=== PATIENT | male | born 1980 | race Caucasian/White ===

== ENCOUNTER 2018-07-16 10:17 | Inpatient (IN) ==
--- NOTE | 2018-07-16 10:39 | ED ---
HPI General Chief complaint: Psychiatric Symptoms Stated complaint: Psych Eval/VCSO Time Seen by Provider: 07/16/18 10:35 History of Present Illness HPI narrative: 37-year-old male presents under a [place] act initiated by the [employer]. The patient reports that he lost his job 2 months ago. He has been feeling depressed and suicidal for the past month. Today he called EMS and was transported here. He reports that he has had vague thoughts of cutting himself or jumping in front of a moving vehicle. Symptoms are moderate , aggravated by unemployment. Denies any homicidal ideation, auditory or visual hallucinations, drug or alcohol use. He does endorse a history of asthma and he has been having a cough and wheezing for the past week. He has been using his albuterol inhaler/nebulizer 3-4 times a day. No fevers or chills. Cough is dry. No other complaints. Related Data Home Medications Medication Instructions Recorded Confirmed albuterol sulfate 07/16/18 Previous Rx's Medication Instructions Recorded prednisone 20 mg PO BID 5 Days #10 tab 07/16/18 Allergies Allergy/AdvReac Type Severity Reaction Status Date / Time No Known Allergies Allergy Verified 07/16/18 10:24 Review of Systems ROS: all other systems reviewed are negative [facility] Medical History Medical History Asthma (Acute) Surgical History Surgical History No history of previous surgery (Acute) Social History Social History Substance History: No History of Abuse Second Hand Smoke Exposure: No Smoking Status: Never smoker How Often Do You Have a Drink Containing Alcohol: Never Recent Travel in [facility] within the Last 8 Weeks: No Recent Out of Country Travel within the Last 8 Weeks: No Immunization History Tetanus Immunization: Unsure Exam Narrative Exam Narrative: GENERAL: Well-developed well-nourished male no acute distress SKIN: Warm and dry. HEAD: Atraumatic. Normocephalic. EYES: Pupils equal and round. No scleral icterus. No injection or drainage. ENT: No nasal bleeding or discharge. Mucous membranes pink and moist. NECK: Trachea midline. No JVD. CARDIOVASCULAR: Regular rate and rhythm. No murmur appreciated. RESPIRATORY: No accessory muscle use. Inspiratory wheezing bilaterally. No crackles GASTROINTESTINAL: Abdomen soft, non-tender, nondistended. Hepatic and splenic margins not palpable. MUSCULOSKELETAL: No obvious deformities. No clubbing. No cyanosis. No edema. NEUROLOGICAL: Awake and alert. No obvious cranial nerve deficits. Motor grossly within normal limits. Normal speech. PSYCHIATRIC: Depressed mood; insight and judgment normal. Course Initial Documented Vital Signs Temperature 99 F 07/16/18 10:25 Pulse Rate 93 H 07/16/18 10:25 Respiratory Rate 16 07/16/18 10:25 Blood Pressure 187/113 H 07/16/18 10:25 Pulse Oximetry 97 07/16/18 10:25 Last Documented Vital Signs Temperature 99 F 07/16/18 10:25 Pulse Rate 93 H 07/16/18 10:25 Respiratory Rate 16 07/16/18 10:25 Blood Pressure 187/113 H 07/16/18 10:25 Pulse Oximetry 97 07/16/18 10:25 Medical Decision Making MDM Narrative Medical decision making narrative: Mental health screening discussed with the patient. Psychiatric screen ordered. DuoNeb administration has been ordered. Prednisone 20 mg every 12 hours has been ordered for his asthma exacerbation. A prescription for prednisone will also be placed into his paperwork for use upon discharge. Lab work has been reviewed. The patient is medically cleared for psychiatric disposition. Medical Screen Exam Complete: Yes Emergency Medical Condition: Yes Differential Diagnosis Differential Diagnosis: Major depressive disorder, depressive disorder not otherwise specified, adjustment reaction, acute psychosis Lab Data Result diagrams: 07/16/18 10:30 07/16/18 10:30 Lab Results 07/16/18 07/16/18 Range/Units 10:30 10:30 WBC 7.6 (4.0-11.0) th/mm3 RBC 4.72 (4.50-5.90) mil/mm3 Hgb 14.6 (13.0-17.0) gm/dL Hct 41.0 (39.0-51.0) % MCV 86.9 (80.0-100.0) fL MCH 31.0 (27.0-34.0) pg MCHC 35.7 (32.0-36.0) % RDW 13.4 (11.6-17.2) % Plt Count 214 (150-450) th/mm3 MPV 7.4 (7.0-11.0) fL Neut % (Auto) 71.3 H (16.0-70.0) % Lymph % (Auto) 12.4 (9.0-44.0) % [place] % (Auto) 8.6 H (0.0-8.0) % Eos % (Auto) 6.9 H (0.0-4.0) % Baso % (Auto) 0.8 (0.0-2.0) % Neut # (Auto) 5.4 (1.8-7.7) th/mm3 Lymph # (Auto) 0.9 L (1.0-4.8) th/mm3 [place] # (Auto) 0.7 (0.0-0.9) th/mm3 Eos # (Auto) 0.5 H (0.0-0.4) th/mm3 Baso # (Auto) 0.1 (0.0-0.2) th/mm3 WBC Differential . Differential Comment Auto diff final Sodium 140 (136-145) meq/L Potassium 3.7 (3.5-5.1) meq/L Chloride 106 (98-107) meq/L Carbon Dioxide 26.7 (21.0-32.0) meq/L Anion Gap 7 (5-15) meq/L BUN 9 (7-18) mg/dL Creatinine 0.92 (0.60-1.30) mg/dL Estimated GFR Greater than 89 (>89) mL/min Random Glucose 101 (74-106) mg/dL Calcium 8.3 L (8.5-10.1) mg/dL Magnesium 1.9 (1.5-2.5) mg/dL Total Bilirubin 1.0 (0.2-1.0) mg/dL AST 34 (15-37) U/L ALT 46 (12-78) U/L Alkaline Phosphatase 102 (45-117) U/L Total Protein 7.9 (6.4-8.2) g/dL Albumin 4.0 (3.4-5.0) g/dL TSH 1.260 (0.358-3.740) uIU/mL Serum Alcohol Less than 3 (0-5) mg/dL Discharge Plan Discharge Disposition Patient Disposition: 30 Still Patient Discharge Condition Condition: Stable Discharge Details Diagnosis: Encounter for medical clearance for patient hold, Asthma exacerbation Physicians Team ED Provider: Miguel Pelayo ED Midlevel Provider: Aditya Bower Primary Care Provider: Primary Care Jesúsi,Starla Rxs /Orders / Referrals /Forms Prescriptions: New prednisone 20 mg tablet 20 mg PO BID 5 Days Qty: 10 RF: 0 No Action albuterol sulfate 90 mcg/actuation Hfa Aerosol Inhaler RF: 0 Status ED Status: Medically Cleared
[2018-07-16 10:51] LABS: Baso # (Auto) 0.1 th/mm3 (0.0-0.2); Baso % (Auto) 0.8 % (0.0-2.0); Eos # (Auto) 0.5 th/mm3 (0.0-0.4); Eos % (Auto) 6.9 % (0.0-4.0); Hemoglobin 14.6 gm/dL (13.0-17.0); Lymph # (Auto) 0.9 th/mm3 (1.0-4.8); Lymph % (Auto) 12.4 % (9.0-44.0); Mean Corpuscular HGB Conc 35.7 % (32.0-36.0); Mean Corpuscular Volume 86.9 fL (80.0-100.0); Mean Platelet Volume 7.4 fL (7.0-11.0); Mono # (Auto) 0.7 th/mm3 (0.0-0.9); Mono % (Auto) 8.6 % (0.0-8.0); Neut # (Auto) 5.4 th/mm3 (1.8-7.7); Neut % (Auto) 71.3 % (16.0-70.0); Platelet Count 214 th/mm3 (150-450); Red Blood Count 4.72 mil/mm3 (4.50-5.90); Red Cell Distribution Width 13.4 % (11.6-17.2); White Blood Count 7.6 th/mm3 (4.0-11.0)
[2018-07-16 11:13] LABS: Alanine Aminotransferase 46 U/L (12-78); Anion Gap 7 meq/L (5-15); Aspartate Aminotransferase 34 U/L (15-37); Blood Urea Nitrogen 9 mg/dL (7-18); Calcium 8.3 mg/dL (8.5-10.1); Carbon Dioxide 26.7 meq/L (21.0-32.0); Chloride 106 meq/L (98-107); Glomerular Filtration Rate Greater Than 89 mL/min (>89); Glucose,Random 101 mg/dL (74-106); Magnesium 1.9 mg/dL (1.5-2.5); Sodium 140 meq/L (136-145)
[2018-07-16 11:20] LABS: Alkaline Phosphatase 102 U/L (45-117); Total Protein 7.9 g/dL (6.4-8.2)
[2018-07-16 11:24] LABS: Potassium 3.7 meq/L (3.5-5.1)
[2018-07-16 11:37] LABS: Amphetamine Screen,Urine Neg (Neg); Barbiturate Screen,Urine Neg (Neg); Cannabinoid Screen,Urine Neg (Neg); Cocaine Screen,Urine Neg (Neg)
[2018-07-16 11:38] LABS: Opiate Screen,Urine Neg (Neg)
[2018-07-16] MEDS: predniSONE 20 MG Tablet PO SCH ×2 (15:27→20:38)
[2018-07-17] MEDS: predniSONE 20 MG Tablet PO SCH ×2 (09:40→21:02)
[2018-07-17] MEDS ORDERED: Aluminum/Magnesium/Simethacone Susp 30 ML UDC PO PRN (09:49)
[2018-07-17] MEDS ORDERED: Acetaminophen 325 MG Tablet PO PRN (09:49)
[2018-07-17] MEDS ORDERED: Senna/Docusate Sodium 8.6/50 MG Tablet PO PRN (09:49)
[2018-07-17] MEDS ORDERED: LORazepam 1 MG Tablet PO PRN (09:49)
[2018-07-17] MEDS ORDERED: Bisacodyl 10 MG Supp RECTAL PRN (09:49)
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
[2018-07-17] MEDS: Sertraline 50 MG Tablet PO SCH (11:30)
[2018-07-17] MEDS ORDERED: Benzonatate 100 MG Capsule PO PRN (17:53)
--- NOTE | 2018-07-17 18:12 | P.CON ---
History of Present Illness Service: [facility] Consult date: 07/17/18 Requesting Physician: Duran Hanna Reason for Consult: asthma management Primary Care Provider: No Primary Care Physician Chief Complaint: "I got sick a week ago" History of Present Illness: 37-year-old male with past medical history significant for asthma and hypertension who presented to the emergency department on 07/16 under [place] act initiated by police department. Patient had apparently lost his job 2 months ago and began having suicidal thoughts and increased depression. Patient was admitted to psychiatry department for further treatment. [facility] consulted to assist with management of asthma. Patient reports he was hospitalized many times during his childhood due to asthma exacerbations. His asthma is routinely controlled with albuterol nebulizer treatments and rescue inhaler. He denies requiring mechanical ventilation for asthma. He states that about 2 weeks ago he became sick as he was around his small children who are also sick. He feels that he partially recovered and became sick once again about a week ago. States that he is been having ongoing cough for the past week, initially cough was productive and now is dry. He reports chest discomfort with cough. He does endorse some shortness of breath especially with coughing fit. States he is unable to sleep at night as coughing is worse when he lies down. He denies any fevers, chills, nausea, vomiting or diarrhea. Patient denies any sore throat, or nasal discharge or sinus tenderness. He also reports that he was previously on antihypertensives including Norvasc and lisinopril however these caused him to develop a rash therefore discontinued these. He denies any other acute concerns at the moment. Review of Systems All other systems reviewed negative except as stated in [facility] - History History Provided By: Patient, Medical Record - Medical History Medical History: Medical History (Last Updated 07/17/18 @ 18:04 by Quita Biswas) Asthma HTN (hypertension) - Surgical History Surgical History: Surgical History (Last Reviewed 07/17/18 @ 18:05 by Quita Biswas) No history of previous surgery - Family History Family History: Family History (Last Updated 07/17/18 @ 18:05 by Quita Biswas) Mother Asthma - Social History I have reviewed the patient's Social History: Yes - Tobacco History Second Hand Smoke Exposure: No Smoking Status: Never smoker - Alcohol History How Often Do You Have a Drink Containing Alcohol: Never - Substance Use History Substance History: No History of Abuse - Travel History Recent Travel in the USA Within the Last 8 Weeks: No Recent Travel Out of the Country Within the Last 8 Weeks: No - Immunization History Tetanus Immunization: Unsure Medications and Allergies Active Medications: Active Medications Acetaminophen (Tylenol) 650 mg PO Q4H PRN PRN Reason: Pain 1-5 or Temp >101F Al Hydrox/Mg Hydrox/Simethicone (Mag-Al Plus Susp Liq) 30 ml PO Q6H PRN PRN Reason: DYSPEPSIA Al Hydroxide/Mg Hydroxide (Milk Of Magnesia Liq) 30 ml PO Q12H PRN PRN Reason: Mild Constipation Albuterol (Albuterol Neb (Prn)) 2.5 mg NEB Q2HR NEB PRN PRN Reason: SHORTNESS OF BREATH/WHEEZING Bisacodyl (Dulcolax Supp) 10 mg RECTAL DAILY PRN PRN Reason: SEVERE CONSITIPATION Diphenhydramine HCl (Benadryl) 50 mg PO HS PRN PRN Reason: INSOMNIA Lactulose (Lactulose Liq) 30 ml PO DAILY PRN PRN Reason: SEVERE CONSITIPATION Lorazepam (Ativan) 1 mg PO Q6H PRN PRN Reason: MODERATE TO SEVERE ANXIETY Prednisone (Deltasone) 20 mg PO BID [facility] Last Admin: 07/17/18 09:40 Dose: 20 mg Senna/Docusate Sodium (Hilary-Colace) 1 tab PO BID PRN PRN Reason: CONSTIPATION Sennosides (Senokot) 17.2 mg PO Q12H PRN PRN Reason: Moderate Constipation Sertraline HCl (Zoloft) 50 mg PO DAILY [facility] Last Admin: 07/17/18 11:30 Dose: 50 mg Allergies Allergy/AdvReac Type Severity Reaction Status Date / Time No Known Allergies Allergy Verified 07/16/18 10:24 Home Medications Medication Instructions Recorded Confirmed Type albuterol sulfate 2 puff INHALATION PRN PRN 07/16/18 07/16/18 History Physical Exam Vital signs: Vital Signs 07/16/18 18:11 07/16/18 18:49 07/16/18 20:36 Temperature 98.7 F Pulse Rate 97 H 112 H 104 H Respiratory Rate 20 20 20 Blood Pressure 174/101 H 180/86 H Pulse Oximetry 99 94 L 07/16/18 21:20 07/16/18 22:30 07/17/18 04:47 Temperature Pulse Rate 104 H 99 H 107 H Respiratory Rate 17 17 Blood Pressure 163/84 H 141/90 H Pulse Oximetry 93 L 95 07/17/18 12:57 Temperature 98.8 F Pulse Rate 107 H Respiratory Rate Blood Pressure 175/100 H Pulse Oximetry 93 L Intake & Output 07/16/18 07/17/18 07/17/18 18:59 06:59 18:59 Weight 113.398 kg 111 kg Other: Weight On Admission 111 kg Narrative: GENERAL: Well-developed, well-nourished male sitting up in chair in no acute distress. SKIN: Warm and dry. HEAD: Atraumatic. Normocephalic. EYES: Pupils equal and round. No scleral icterus. No injection or drainage. ENT: No nasal bleeding or discharge. Mucous membranes pink and moist. No oral pharynx erythema or exudate, no sinus tenderness. NECK: Trachea midline. No JVD. CARDIOVASCULAR: Regular rate and rhythm. RESPIRATORY: No accessory muscle use, respirations unlabored. Scattered expiratory wheezing throughout anterior and posterior lung villaseñor, no crackles or rhonchi. GASTROINTESTINAL: Abdomen soft, non-tender, nondistended. + Bowel sounds MUSCULOSKELETAL: Extremities without clubbing, cyanosis, or edema. No obvious deformities. NEUROLOGICAL: Awake, alert, oriented x3. No obvious cranial nerve deficits. Motor grossly within normal limits. Five out of 5 muscle strength in the arms and legs. Normal speech. Results - Labs CBC & Chem 7: 07/16/18 10:30 07/16/18 10:30 Assessment and Plan - Plan 37-year-old male with past medical history significant for asthma and hypertension who presented to the emergency department on 07/16 under [place] act initiated by police department. Patient had apparently lost his job 2 months ago and began having suicidal thoughts and increased depression. Patient was admitted to psychiatry department for further treatment. [facility] consulted to assist with management of asthma. Asthma, moderately controlled, mild exacerbation URI, likely viral -CBC with no leukocytosis, oxygen saturation in the mid to low 90s. -We will schedule breathing treatments every 4 hours, with as needed albuterol -Check chest x-ray -Tessalon Perles as needed for cough, start Symbicort low-dose -Continue oral prednisone, one-time dose of oral magnesium Hypertension, chronic, uncontrolled -Patient reports rash with lisinopril and Norvasc. -Start low-dose hydralazine, continue monitoring BP trend and adjust medications accordingly. DVT prophylaxisambulation Thank you Dr. Hanna for this consultation, will continue to follow along.
[2018-07-17] MEDS ORDERED: Magnesium Oxide 400 MG Tablet PO ONE (18:30)
--- NOTE | 2018-07-17 18:32 | XR ---
EXAM DATE: 07/17/2018 6:30 PM EST AGE/SEX: 37 years / Male INDICATIONS: Cough, shortness of breath, congestion. CLINICAL DATA: This is the patient's subsequent encounter. Patient reports that signs and symptoms h ave been present for 3 weeks and indicates a pain score of 3/10. MEDICAL/SURGICAL HISTORY: Asthma. None. COMPARISON: No prior exams available for comparison. FINDINGS: A single AP view of the chest demonstrates the lungs to be symmetrically aerated without evidence of mass, infiltrate or effusion. The cardiomediastinal contours are unremarkable. Osseous structures a re intact. CONCLUSION: The lungs are clear. Electronically signed by: Rene Howell MD 07/17/2018 6:31 PM EST
[2018-07-17] MEDS: hydrALAZINE 10 MG Tablet PO SCH ×2 (19:31→19:40)
[2018-07-17] MEDS: Budesonide-Formoterol 80/4.5 MCG 6.9 GM Inhaler INH SCH (22:45)
[2018-07-18] MEDS: Budesonide-Formoterol 80/4.5 MCG 6.9 GM Inhaler INH SCH ×2 (08:58→20:33)
[2018-07-18] MEDS: hydrALAZINE 10 MG Tablet PO SCH ×3 (08:59→17:57)
[2018-07-18] MEDS: predniSONE 20 MG Tablet PO SCH ×2 (08:59→20:33)
[2018-07-18] MEDS: Sertraline 50 MG Tablet PO SCH (09:00)
--- NOTE | 2018-07-18 11:04 | P.PNPSY ---
Subjective Remarks: Reviewed electronic record and discussed with nursing staff. Rounded with ROLO Nugent. Patient in common area. He is well rested and states that he feels alot better. Started on Zoloft and has no side effects from the medications. Focused on finding employment. States he was let go from "[employer]" and has been struggling to find another job. Worked for [employer] for a long time but could not keep up with the demands and the pressure of the physical work crawling though the ceiling of home. He appears remorseful regarding the [place] Act and is preoccupied with finding employment to support his family. Denies SI/HI. Review of Systems All other systems reviewed negative except as stated in HPI Mental Status Examination Appearance: Appropriate Consciousness: Alert Orientation: Person, Place, Date/Time Motor Activity: Normal gait Speech: Unremarkable Language: Adequate Fund of Knowledge: Inadequate Attention and Concentration: Adequate Memory: Unremarkable Mood: Sad Affect: Sad Thought Process & Associations: Intact, Linear Thought Content: Appropriate Hallucination Type: None Delusion Type: None Suicidal Ideation: No Suicidal Plan: No Suicidal Intention: No Homicidal Ideation: No Homicidal Plan: No Homicidal Intention: No Insight: Fair Judgment: Impulsive Assessment and Plan - Assessment (1) Major depressive disorder Code(s): F32.9 - Major depressive disorder, single episode, unspecified Status : Acute - Plan Plan: Estimated LOS: [] days Continue current treatment and plan of care. Justification for Continued Inpatient Stay: Moving patient to a less restrictive environment may result in his decompensation. (1) Major depressive disorder Qualifiers: Major depression recurrence: single episode Active/Remission status: currently active Major depression episode severity: severe Psychotic features : without psychotic features Qualified Code(s): F32.2 - Major depressive disorder, single episode, severe without psychotic features
--- NOTE | 2018-07-18 13:06 | P.PN ---
Subjective Interval history: Follow-up visit for asthma and hypertension. Spoke with nurse who reports patient has been refusing hydralazine for blood pressure management, states that he takes homeopathic medications for this. Patient seen and examined in his room, appears to be in no acute distress. He reports he slept much better overnight with less coughing, shortness of breath has also improved. He denies any fevers, chills, nausea, vomiting or diarrhea. Discussed the importance of BP control as well as long-term damage to organs associated with persistent hypertension. Patient states that he would like to try natural routes prior to trying medication. Physical Exam Vital signs: Vital Signs 07/17/18 17:00 07/17/18 21:39 07/18/18 05:25 Temperature 98 F Pulse Rate 107 H 107 H 85 Respiratory Rate 19 19 16 Blood Pressure 179/98 H Pulse Oximetry 96 07/18/18 10:04 Temperature Pulse Rate 91 H Respiratory Rate 16 Blood Pressure Pulse Oximetry Intake & Output 07/17/18 07/18/18 07/18/18 18:59 06:59 18:59 Weight 111 kg Other: Weight On Admission 111 kg Narrative: GENERAL: Well-developed, well-nourished male sitting up in chair in no acute distress. SKIN: Warm and dry. HEAD: Atraumatic. Normocephalic. EYES: Pupils equal and round. No scleral icterus. No injection or drainage. ENT: No nasal bleeding or discharge. Mucous membranes pink and moist. No oral pharynx erythema or exudate. NECK: Trachea midline. CARDIOVASCULAR: Regular rate and rhythm. RESPIRATORY: No accessory muscle use, respirations unlabored. Minimal expiratory wheezing throughout anterior and posterior lung villaseñor, no crackles or rhonchi. GASTROINTESTINAL: Abdomen soft, non-tender, nondistended. + Bowel sounds MUSCULOSKELETAL: Extremities without clubbing, cyanosis, or edema. No obvious deformities. NEUROLOGICAL: Awake, alert, oriented x3. No obvious cranial nerve deficits. Motor grossly within normal limits. Normal speech. Results - Labs CBC & Chem 7: 07/16/18 10:30 07/16/18 10:30 - Imaging Impressions Chest X-Ray 07/17/18 00:00 CONCLUSION: The lungs are clear. Assessment and Plan - Plan 37-year-old male with past medical history significant for asthma and hypertension who presented to the emergency department on 07/16 under [place] act initiated by police department. Patient had apparently lost his job 2 months ago and began having suicidal thoughts and increased depression. Patient was admitted to psychiatry department for further treatment. [facility] consulted to assist with management of asthma. Asthma, moderately controlled, mild exacerbation URI, likely viral -CBC with no leukocytosis, oxygen saturation stable. -Continue breathing treatments every 6 hours, with as needed albuterol -Chest x-ray negative -Tessalon Perles as needed for cough, continue Symbicort low-dose -5-day course of prednisone Hypertension, chronic, uncontrolled -Patient reports rash with lisinopril and Norvasc. -Offered hydralazine for BP control, patient refusing would like to try natural route prior to trying medications. -Discussed with patient the importance of BP control and long-term endorgan damage. Encouraged low-sodium diet as well as weight loss. DVT prophylaxisambulation Discussed Condition With: Patient and RN
--- NOTE | 2018-07-18 14:55 | P.CONPSY ---
Provisional Diagnosis Admission Date: July 17, 2018 09:48 [place] I.: Major depressive disorder History of Present Illness Service: Psychiatry Reason for Consult: 2nd opinion Primary Care Provider: No Primary Care Physician Chief Complaint: "I got sick a week ago" History of Present Illness: Pt is a 37YOHM admitted to [facility] under a BA secondary to depression and suicidal ideations with plan to walk into traffic. Pt is under a lot of stress due to recently losing job and struggling financially.He c/o of depression and high anxiety and states that he called [facility]- event staff member report that pt has been pleasant and cooperative on the unit and did attend therapeutic groups today. He reports that environment here is calming. He reports that he has been depressed for years but stressors have rapidly worsened symptoms. He reports that he is taking sertraline without side effects. [facility] - History History Provided By: Patient, Medical Record - Medical History Medical History: Medical History (Last Reviewed 07/18/18 @ 15:57 by Letty Hall MD) Asthma HTN (hypertension) - Surgical History Surgical History: Surgical History (Last Reviewed 07/18/18 @ 15:57 by Letty Hall MD) No history of previous surgery - Family History Family History: Family History (Last Reviewed 07/18/18 @ 15:57 by Letty Hall MD) Mother Asthma - Social History I have reviewed the patient's Social History: Yes - Tobacco History Second Hand Smoke Exposure: No Smoking Status: Never smoker - Alcohol History How Often Do You Have a Drink Containing Alcohol: Never - Substance Use History Substance History: No History of Abuse - Travel History Recent Travel in the [place] Within the Last 8 Weeks: No Recent Travel Out of the Country Within the Last 8 Weeks: No - Immunization History Tetanus Immunization: Never Vaccinated Hx Influenza Vaccine This Season: No Medications and Allergies Active Medications: Active Medications Acetaminophen (Tylenol) 650 mg PO Q4H PRN PRN Reason: Pain 1-5 or Temp >101F Al Hydrox/Mg Hydrox/Simethicone (Mag-Al Plus Susp Liq) 30 ml PO Q6H PRN PRN Reason: DYSPEPSIA Al Hydroxide/Mg Hydroxide (Milk Of Magnesia Liq) 30 ml PO Q12H PRN PRN Reason: Mild Constipation Albuterol (Albuterol Neb (Prn)) 2.5 mg NEB Q2HR NEB PRN PRN Reason: SHORTNESS OF BREATH/WHEEZING Last Admin: 07/17/18 19:34 Dose: 2.5 mg Albuterol (Albuterol Neb (Shiv)) 2.5 mg NEB Q6HR NEB [facility] Last Admin: 07/18/18 09:30 Dose: 2.5 mg Benzonatate (Tessalon Perles) 200 mg PO Q8H PRN PRN Reason: COUGH Bisacodyl (Dulcolax Supp) 10 mg RECTAL DAILY PRN PRN Reason: SEVERE CONSITIPATION Budesonide/Formoterol Fumarate (Symbicort 80/4.5 Mcg Inh) 2 puff INH BID [facility] Last Admin: 07/18/18 08:58 Dose: 2 puff Diphenhydramine HCl (Benadryl) 50 mg PO HS PRN PRN Reason: INSOMNIA Last Admin: 07/17/18 21:02 Dose: 50 mg Hydralazine HCl (Apresoline) 10 mg PO TID [facility] Last Admin: 07/18/18 13:41 Dose: Not Given Lactulose (Lactulose Liq) 30 ml PO DAILY PRN PRN Reason: SEVERE CONSITIPATION Lorazepam (Ativan) 1 mg PO Q6H PRN PRN Reason: MODERATE TO SEVERE ANXIETY Prednisone (Deltasone) 20 mg PO BID [facility] Stop: 07/21/18 10:44 Last Admin: 07/18/18 08:59 Dose: 20 mg Senna/Docusate Sodium (Hilary-Colace) 1 tab PO BID PRN PRN Reason: CONSTIPATION Sennosides (Senokot) 17.2 mg PO Q12H PRN PRN Reason: Moderate Constipation Sertraline HCl (Zoloft) 50 mg PO DAILY [facility] Last Admin: 07/18/18 09:00 Dose: 50 mg Allergies Allergy/AdvReac Type Severity Reaction Status Date / Time lisinopril AdvReac Severe Rash Verified 07/17/18 19:03 amlodipine [From [facility]] AdvReac Rash Verified 07/17/18 19:04 Home Medications Medication Instructions Recorded Confirmed Type albuterol sulfate 2 puff INHALATION PRN PRN 07/16/18 07/16/18 History Exam Vital signs: Vital Signs 07/17/18 17:00 07/17/18 21:39 07/18/18 05:25 Temperature 98 F Pulse Rate 107 H 107 H 85 Respiratory Rate 19 19 16 Blood Pressure 179/98 H Pulse Oximetry 96 07/18/18 10:04 Temperature Pulse Rate 91 H Respiratory Rate 16 Blood Pressure Pulse Oximetry Intake & Output 07/17/18 07/18/18 07/18/18 18:59 06:59 18:59 Weight 111 kg Other: Weight On Admission 111 kg Mental Status Examination Appearance: Appropriate Consciousness: Alert Orientation: Person, Place, Date/Time Motor Activity: Normal gait Speech: Unremarkable Language: Adequate Fund of Knowledge: Adequate Attention and Concentration: Adequate Memory: Unremarkable Mood: Sad Affect: Sad Thought Process & Associations: Intact, Linear Thought Content: Appropriate Hallucination Type: None Delusion Type: None Suicidal Ideation: No (denies today) Suicidal Plan: No Suicidal Intention: No Homicidal Ideation: No Homicidal Plan: No Homicidal Intention: No Insight: Fair Judgment: Impulsive Assessment and Plan - Assessment (1) Major depressive disorder Code(s): F32.9 - Major depressive disorder, single episode, unspecified Status : Acute - Plan Plan: Estimated LOS: [] days I agree that given recent SI and depression, lack of outpatient psychiatric providers, pt warrants a period of observation for safety and stabilization. 2nd opinion paperwork completed Justification for Continued Inpatient Stay: impairments in safety (1) Major depressive disorder Qualifiers: Major depression recurrence: single episode Active/Remission status: currently active Major depression episode severity: severe Psychotic features : without psychotic features Qualified Code(s): F32.2 - Major depressive disorder, single episode, severe without psychotic features
--- NOTE | 2018-07-18 16:02 | ECG ---
Date Performed: 07/18/2018 Time Performed: 10:24:01 PTAGE: 37 years EKG: Sinus rhythm NORMAL ECG NO PREVIOUS TRACING DOCTOR: Ze Wilson Interpretating Date/Time 07/18/2018 16:01:36
[2018-07-19 06:00] VITALS: BP 164/101; RESP 18; TEMP 98.3; O2SAT 95
[2018-07-19] MEDS: Sertraline 50 MG Tablet PO SCH (08:35)
[2018-07-19] MEDS: Budesonide-Formoterol 80/4.5 MCG 6.9 GM Inhaler INH SCH (08:35)
[2018-07-19] MEDS: predniSONE 20 MG Tablet PO SCH (08:35)
[2018-07-19] MEDS: hydrALAZINE 10 MG Tablet PO SCH ×2 (08:37→12:03)
[2018-07-19 10:35] VITALS: PULSE 71
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
== END 2018-07-19 12:35 | disposition home or self-care (01) ==
LOC: NEPJ 10:17 → NEDA 07-17 09:48 → H260 07-17 12:56
PROVIDERS: ADMIT Student in an Organized Health Care Education/Training Program; ATTEND Student in an Organized Health Care Education/Training Program